=== PATIENT | female | born 1955 | race Caucasian/White ===

== ENCOUNTER 2019-11-02 19:53 | Emergency (ER) | payer BC ==
[~2019-11-02] VITALS: Ht 165.1 cm; Wt 79.4 kg
[~2019-11-02 19:53] MED LIST: ALENDRONATE; CALCIUM; CELEXA20 MG PO; FOSAMAX 70 MG T70 MG PO; GLIPIZIDE ER2.5 MG PO; METFORMIN; METFORMIN HCL500 MG PO; MULTIVITAMINS PO; NEURONTIN 300300 M1 PO; NORCO 5-325 TA1 EACH PO; NORFLEX100 MG PO; SIMVASTATIN40 MG PO; TETRACYCLINE H500 MG PO; TRICOR; TRICOR145 MG PO; TUMS PO; ZESTRIL10 MG PO
[2019-11-02] MEDS ORDERED: COREG6.25 MG PO (20:04)
[2019-11-02] MEDS ORDERED: HYDROCODON-ACE1 EAC8 PO (21:09)
[2019-11-02 21:36] VITALS: BP 167/72
--- NOTE | 2019-11-03 14:55 | EKG ---
[place] [address] ELECTROCARDIOGRAM REPORT Name: ERVIN GAGNON 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: [place] : 1955 Requested By: Aide Quiros Order Number: [id number] MD: Bradly Amaya Measurements Intervals [place] Rate: 66 P: 38 WA: 138 QRS: -5 QRSD: 97 T: 52 QT: 392 QTc: 411 Interpretive Statements Sinus rhythm Abnormal R-wave progression, early transition Baseline wander in lead(s) II Compared to ECG 03/25/2016 00:30:43 No significant changes Electronically Signed On 11-03-2019 14:54:12 CDT by Bradly Amaya [email or web address] <ELECTRONICALLY SIGNED> By: Bradly Amaya MD, FACC 11/03/19 1454 10 10 Bradly Amaya MD, [facility] /EPI
== END 2019-11-02 21:38 | disposition home or self-care (01) ==
LOC: M.ERS 19:53
DX: G54.2 Cervical root disorders, not elsewhere classified (principal); I10 Essential (primary) hypertension; E11.9 Type 2 diabetes mellitus without complications; Z90.710 Acquired absence of both cervix and uterus; Z87.442 Personal history of urinary calculi